=== PATIENT | male | born 1940 | race Caucasian/White ===

== ENCOUNTER 2017-03-03 14:29 | Inpatient (IN) | payer MEDICARE ==
[~2017-03-03] VITALS: Ht 177.8 cm; Wt 90.8 kg
[2017-03-03] VITALS (7 sets, daily range): BP systolic 11–116; BP diastolic 61–78; PULSE 47–100; RESP 16–18; TEMP 96.7–97.8; O2SAT 95–100
[~2017-03-03 14:29] MED LIST: AMIO200 PO; AMLO5TAB13 PO; BABY81CH PO; COQ1200C3 PO; DIOV320T PO; FENO1TAB76 PO; FURO20 PO; GLUC500C4 PO; ONDA1TAB16 PO; PREV30CA36 PO; SUPETAB30 PO; TOPR100T15 PO; XARE15TA PO
[2017-03-03] MEDS ORDERED: XARE20TA PO (14:49)
[2017-03-03] MEDS ORDERED: VITA100064 PO (14:57)
[2017-03-03] MEDS ORDERED: FURO1TAB62 PO (14:57)
[2017-03-03] MEDS ORDERED: LOSA25TA PO (14:57)
[2017-03-03] MEDS ORDERED: COEN400C PO (14:57)
[2017-03-03] MEDS ORDERED: METO100T PO (14:57)
[2017-03-03] MEDS ORDERED: ONDANSETRON HCL 4 MG/2 ML VIAL IV PUSH ONE ×2 (15:00→18:45)
[2017-03-03] MEDS ORDERED: SODIUM CHLORIDE 0.9% FLUSH 10 ML FLUSH IVF PRN (15:00)
[2017-03-03] MEDS ORDERED: diphenhydrAMINE HCL 50 MG/ML VIAL IV PUSH ONE (15:00)
[2017-03-03 15:27] LABS: AUTOMATED NEUTROPHIL # 12.8 TH/MM3 (1.8-7.7); BASOPHIL % 0.2 % (0.0-2.0); EOSINOPHIL % 0.2 % (0.0-4.0); HEMATOCRIT 41.2 % (39.0-51.0); HEMO FLAGS DIFF FINAL; LYMPH % 2.9 % (9.0-44.0); LYMPHOCYTE # 0.4 TH/MM3 (1.0-4.8); MEAN CELL VOLUME 96.3 FL (80.0-100.0); MEAN CORPUSCULAR HEMOGLOBIN 33.2 PG (27.0-34.0); MEAN CORPUSCULAR HGB CONC 34.4 % (32.0-36.0); MONO % 7.1 % (0.0-8.0); NEUT % 89.6 % (16.0-70.0); PLATELET COUNT 121 TH/MM3 (150-450); RED BLOOD COUNT 4.28 MIL/MM3 (4.50-5.90); RED CELL DISTRIBUTION WIDTH 13.4 % (11.6-17.2); WHITE BLOOD COUNT 14.2 TH/MM3 (4.0-11.0)
--- NOTE | 2017-03-03 15:30 | PD ---
HPI Chief Complaint: Complaint Time Seen by Provider: 14:44 Travel History International Travel<30 days: No Contact w/Intl Traveler<30days: No Traveled to known affect area: No History of Present Illness HPI Patient is a 76-year-old male presenting to emergency department evaluation of nausea and vomiting. Patient states he's had these symptoms since he had a urinary stent placed on Saturday with Dr. Lamb. Patient went to [facility] yesterday and was given IV fluids, labs were drawn and an EKG was performed per 's report. Patient was discharged home with a prescription for Zofran every 8 hours. Patient had been taking it but continued to feel nauseated. Additionally patient stopped Xarelto for the procedure, he resumed it on Saturday as advised and noticed an increase in hematuria. He did not take Saturday's dose or today's dose. He denies any other complaints at this time. No fever, no chills, no abdominal pain, no back pain, no chest pain. Patient's past medical history includes hypertension, hyperlipidemia, chronic kidney disease stage III, congestive heart failure. He has a pacemaker defibrillator. Dr. Shanks is his primary doctor. [facility] Past Medical History Hx Anticoagulant Therapy: Yes (xarelto) Arthritis: No Asthma: No Autoimmune Disease: No Blood Disorders: No Anxiety: No Depression: No Heart Rhythm Problems: Yes Cancer: No Cardiovascular Problems: Yes High Cholesterol: No Chemotherapy: No Chest Pain: No Congestive Heart Failure: No COPD: No Cerebrovascular Accident: Yes (TIA-2008) Diabetes: No Diminished Hearing: No Endocrine: No GERD: No Glaucoma: No Genitourinary: Yes Headaches: No Hepatitis: No Hiatal Hernia: No Hypertension: Yes Immune Disorder: No Kidney Stones: Yes Musculoskeletal: No Neurologic: No Psychiatric: No Reproductive: No Respiratory: No Myocardial Infarction: No Radiation Therapy: No Renal Failure: No Seizures: No Sickle Cell Disease: No Sleep Apnea: No Thyroid Disease: No Ulcer: No Tetanus Vaccination: > 5 Years Influenza Vaccination: Yes Past Surgical History Abdominal Surgery: No AICD: Yes Cardiac Surgery: Yes (LEFT CHEST PACEMAKER/DIFIB-2008) Ear Surgery: No Endocrine Surgery: No Eye Surgery: No Genitourinary Surgery: Yes (REMOVAL OF KIDNEY STONES) Gynecologic Surgery: No Joint Replacement: No Oral Surgery: No Pacemaker: No Thoracic Surgery: No Tonsillectomy: Yes Social History Alcohol Use: No Tobacco Use: No Substance Use: No Allergies-Medications (Allergen,Severity, Reaction): Coded Allergies: promethazine (Verified Allergy, Severe, Anaphylaxis, 03/03/17) Sulfa (Sulfonamide Antibiotics) (Unverified Allergy, Mild, Rash, 03/03/17) Reported Meds & Prescriptions Reported Meds & Active Scripts Active Reported Coq-10 (Coenzyme Q10 (Ubidecarenone)) 400 Mg Cap 200 Tab PO Vitamin D3 (Cholecalciferol) 1,000 Unit Tab 5,000 Units PO DAILY Losartan (Losartan Potassium) 25 Mg Tab 12.5 Mg PO DAILY Metoprolol Tartrate 100 Mg Tab 100 Mg PO DAILY Lasix (Furosemide) 20 Mg Tab 20 Mg PO DAILY Xarelto (Rivaroxaban) 20 Mg Tab 20 Mg PO DAILY Review of Systems Except as stated in HPI: all other systems reviewed are Neg General / Constitutional: No: Fever, Chills HENT: No: Headaches Cardiovascular: No: Chest Pain or Discomfort Respiratory: No: Shortness of Breath Gastrointestinal: Positive: Nausea, Vomiting, No: Abdominal Pain Genitourinary: Positive: Hematuria Neurologic: No: Weakness, Dizziness Physical Exam Narrative GENERAL: Well-developed, well-nourished, alert elderly gentleman. Resting comfortably in no acute distress. SKIN: Warm and dry. HEAD: Atraumatic. Normocephalic. EYES: Pupils equal and round. No scleral icterus. No injection or drainage. ENT: No nasal bleeding or discharge. Mucous membranes pink and moist. NECK: Trachea midline. No JVD. CARDIOVASCULAR: Regular rate and rhythm. 2/6 systolic murmur RESPIRATORY: No accessory muscle use. Clear to auscultation. Breath sounds equal bilaterally. GASTROINTESTINAL: Abdomen soft, non-tender, nondistended. Hepatic and splenic margins not palpable. MUSCULOSKELETAL: Extremities without clubbing, cyanosis, or edema. No obvious deformities. NEUROLOGICAL: Awake and alert. No obvious cranial nerve deficits. Motor grossly within normal limits. Five out of 5 muscle strength in the arms and legs. Normal speech. PSYCHIATRIC: Appropriate mood and affect; insight and judgment normal. Data Data Last Documented VS Vital Signs Date Time Temp Pulse Resp B/P (MAP) Pulse Ox O2 Delivery O2 Flow Rate FiO2 03/03/17 14:50 89 16 03/03/17 14:30 97.6 116/61 (79) 98 Orders Orders Complete Blood Count With Diff (03/03/17 14:57) Comprehensive Metabolic Panel (03/03/17 14:57) Urinalysis - C+S If Indicated (03/03/17 14:57) Ecg Monitoring (03/03/17 14:57) Iv Access Insert/Monitor (03/03/17 14:57) Ondansetron Inj (Zofran Inj) (03/03/17 15:00) Sodium Chloride 0.9% Flush (Ns Flush) (03/03/17 15:00) Diphenhydramine Inj (Benadryl Inj) (03/03/17 15:00) Sodium Chlorid 0.9% 500 Ml Inj (Ns 500 M (03/03/17 15:45) Abdomen, Kub Only (03/03/17 ) Labs Laboratory Tests Test 03/03/17 14:57 03/03/17 15:00 White Blood Count 14.2 TH/MM3 Red Blood Count 4.28 MIL/MM3 Hemoglobin 14.2 GM/DL Hematocrit 41.2 % Mean Corpuscular Volume 96.3 FL Mean Corpuscular Hemoglobin 33.2 PG Mean Corpuscular Hemoglobin Concent 34.4 % Red Cell Distribution Width 13.4 % Platelet Count 121 TH/MM3 Mean Platelet Volume 10.1 FL Neutrophils (%) (Auto) 89.6 % Lymphocytes (%) (Auto) 2.9 % Monocytes (%) (Auto) 7.1 % Eosinophils (%) (Auto) 0.2 % Basophils (%) (Auto) 0.2 % Neutrophils # (Auto) 12.8 TH/MM3 Lymphocytes # (Auto) 0.4 TH/MM3 Monocytes # (Auto) 1.0 TH/MM3 Eosinophils # (Auto) 0.0 TH/MM3 Basophils # (Auto) 0.0 TH/MM3 CBC Comment DIFF FINAL Differential Comment Blood Urea Nitrogen 30 MG/DL Creatinine 2.74 MG/DL Random Glucose 110 MG/DL Total Protein 6.5 GM/DL Albumin 2.7 GM/DL Calcium Level 7.7 MG/DL Alkaline Phosphatase 60 U/L Aspartate Amino Transf (AST/SGOT) 21 U/L Alanine Aminotransferase (ALT/SGPT) 16 U/L Total Bilirubin 1.2 MG/DL Sodium Level 122 MEQ/L Potassium Level 4.8 MEQ/L Chloride Level 91 MEQ/L Carbon Dioxide Level 23.7 MEQ/L Anion Gap 7 MEQ/L Estimat Glomerular Filtration Rate 23 ML/MIN MDM Medical Decision Making Medical Screen Exam Complete: Yes Emergency Medical Condition: Yes Interpretation(s) Vital Signs Date Time Temp Pulse Resp B/P (MAP) Pulse Ox O2 Delivery O2 Flow Rate FiO2 03/03/17 14:50 89 16 03/03/17 14:30 97.6 47 18 116/61 (79) 98 Differential Diagnosis UTI versus metabolic abnormality versus obstruction versus other Narrative Course Patient presented for evaluation of nausea vomiting that has been ongoing since a urinary stent was placed on Saturday. Patient appears well, his vital signs are stable. Labs ordered and pending. Patient to be given Zofran IV. Patient was given 500 mL of IV fluids. CBC with a white count of 10.2 with left shift Chemistry with a sodium of 122, BUN/creatinine 30/2.74, calcium 7.7, total bilirubin 1.2. Urinalysis with large occult blood, large leukocyte esterase, 64 white blood cells, few bacteria, few mucus. Patient was given ciprofloxacin IV 1 dose. Patient was reassessed, he continued to report nausea, additional dose of Zofran ordered. Abdominal x-ray which was read by the radiologist as double-J left ureteral stent in place. 14.8 mm calcified calculus in the mid left kidney. Multiple pelvic calcifications likely reflecting phleboliths a low bladder calculus cannot be excluded. A 9.6 mm pelvic calcification projects in the region of the left UVJ. patient was also seen and evaluated by my attending physician. Patient will be admitted with hyponatremia, intractable nausea or vomiting, urinary tract infection. Dr. Estrada discussed findings with Dr. Shanks, patient's primary doctor who accepted admission. Admit orders place. Diagnosis Primary Impression: Intractable nausea and vomiting Qualified Codes: R11.2 - Nausea with vomiting, unspecified Additional Impressions: UTI (urinary tract infection) Qualified Codes: N39.0 - Urinary tract infection, site not specified; R31.9 - Hematuria, unspecified Hyponatremia Admitting Information Admitting Physician Requests: Admit Condition: Stable Bharath,Lalaalvina ESPINAL Mar 03, 2017 15:30
[2017-03-03 15:45] LABS: ALKALINE PHOSPHATASE 60 U/L (45-117); ALT (GPT) 16 U/L (12-78); ANION GAP 7 MEQ/L (5-15); AST (GOT) 21 U/L (15-37); BICARBONATE 23.7 MEQ/L (21.0-32.0); BLOOD UREA NITROGEN 30 MG/DL (7-18); CHLORIDE 91 MEQ/L (98-107); GLOMERULAR FILTRATION RATE 23 ML/MIN (>89); TOTAL BILIRUBIN ADULT 1.2 MG/DL (0.2-1.0)
[2017-03-03] MEDS ORDERED: SODIUM CHLORID 0.9% 500 ML INJ 500 ML IV ONE (15:45)
[2017-03-03 15:55] LABS: POTASSIUM 4.8 MEQ/L (3.5-5.1)
[2017-03-03 15:57] LABS: SODIUM (NA) 122 MEQ/L (136-145)
--- NOTE | 2017-03-03 16:34 | RADRPT ---
EXAM DATE/TIME: 03/03/2017 15:58 [facility] COMPARISON: No previous studies available for comparison. INDICATIONS : Stent placement. DR kang. MEDICAL HISTORY : None. SURGICAL HISTORY : None. ENCOUNTER: Initial ACUITY: 1 day PAIN SCORE: 0/10 LOCATION: Bilateral abdomen FINDINGS: There is a left ureteral stent in place. There is a 14 x 8mm calcified density projecting in the ania on of the mid left kidney. There is a 9 x 6 mm calcified density projecting in the region of the left UVJ. Additional calcified densities in the pelvis likely reflect phleboliths although bladder calcul i cannot be excluded. No significant abnormal calcifications corresponding to the region of the right kidney and ureter. Nonobstructive bowel gas pattern. Osseous structures are intact. CONCLUSION: 1. Double-J left ureteral stent in place. 2. 14 x 8mm calcified calculus in the mid left kidney. 3. Multiple pelvic calcifications likely reflect phleboliths although bladder calculi cannot be exclu ded. A 9 x 6 mm pelvic calcification projects in the region of the left UVJ. Juan Ramon Cormier MD on March 03, 2017 at 16:29 Board Certified Radiologist. This report was verified electronically.
[2017-03-03 17:41] LABS: BACTERIA, URINE FEW /hpf; BLOOD, URINE LARGE (NEG); GLUCOSE,URINE NEG (NEG); KETONE, URINE NEG (NEG); MUCUS URINE FEW /lpf (OCC); NITRITE,URINE NEG (NEG); SQUAMOUS EPITHELIAL CELL URINE 1 /hpf (0-5); URINE COLOR YELLOW (YELLW/STRAW)
[2017-03-03 17:42] LABS: COMMENT (UR) CULTURE INDICATED; CULTURE IF INDICATED CULTURE INDICATED
[2017-03-03] MEDS ORDERED: CIPROFLOXACIN 400 MG PREMIX 200 ML IV ONE (18:00)
--- NOTE | 2017-03-03 19:34 | PD ---
Data Data Last Documented VS Vital Signs Date Time Temp Pulse Resp B/P (MAP) Pulse Ox O2 Delivery O2 Flow Rate FiO2 03/03/17 19:19 93 18 111/78 (89) 99 Room Air 03/03/17 17:21 97.8 Orders Orders Complete Blood Count With Diff (03/03/17 14:57) Comprehensive Metabolic Panel (03/03/17 14:57) Urinalysis - C+S If Indicated (03/03/17 14:57) Ecg Monitoring (03/03/17 14:57) Iv Access Insert/Monitor (03/03/17 14:57) Ondansetron Inj (Zofran Inj) (03/03/17 15:00) Sodium Chloride 0.9% Flush (Ns Flush) (03/03/17 15:00) Diphenhydramine Inj (Benadryl Inj) (03/03/17 15:00) Sodium Chlorid 0.9% 500 Ml Inj (Ns 500 M (03/03/17 15:45) Abdomen, Kub Only (03/03/17 ) Urine Culture (03/03/17 16:40) Ciprofloxacin 400 Mg Premix (Cipro 400 M (03/03/17 18:00) Ondansetron Inj (Zofran Inj) (03/03/17 18:45) Admit Order (Ed Use Only) (03/03/17 19:23) Labs Laboratory Tests Test 03/03/17 14:57 03/03/17 15:00 03/03/17 16:40 White Blood Count 14.2 TH/MM3 Red Blood Count 4.28 MIL/MM3 Hemoglobin 14.2 GM/DL Hematocrit 41.2 % Mean Corpuscular Volume 96.3 FL Mean Corpuscular Hemoglobin 33.2 PG Mean Corpuscular Hemoglobin Concent 34.4 % Red Cell Distribution Width 13.4 % Platelet Count 121 TH/MM3 Mean Platelet Volume 10.1 FL Neutrophils (%) (Auto) 89.6 % Lymphocytes (%) (Auto) 2.9 % Monocytes (%) (Auto) 7.1 % Eosinophils (%) (Auto) 0.2 % Basophils (%) (Auto) 0.2 % Neutrophils # (Auto) 12.8 TH/MM3 Lymphocytes # (Auto) 0.4 TH/MM3 Monocytes # (Auto) 1.0 TH/MM3 Eosinophils # (Auto) 0.0 TH/MM3 Basophils # (Auto) 0.0 TH/MM3 CBC Comment DIFF FINAL Differential Comment Blood Urea Nitrogen 30 MG/DL Creatinine 2.74 MG/DL Random Glucose 110 MG/DL Total Protein 6.5 GM/DL Albumin 2.7 GM/DL Calcium Level 7.7 MG/DL Alkaline Phosphatase 60 U/L Aspartate Amino Transf (AST/SGOT) 21 U/L Alanine Aminotransferase (ALT/SGPT) 16 U/L Total Bilirubin 1.2 MG/DL Sodium Level 122 MEQ/L Potassium Level 4.8 MEQ/L Chloride Level 91 MEQ/L Carbon Dioxide Level 23.7 MEQ/L Anion Gap 7 MEQ/L Estimat Glomerular Filtration Rate 23 ML/MIN Urine Color YELLOW Urine Turbidity HAZY Urine pH 5.0 Urine Specific [place] 1.015 Urine Protein 30 mg/dL Urine Glucose (UA) NEG mg/dL Urine Ketones NEG mg/dL Urine Occult Blood LARGE Urine Nitrite NEG Urine Bilirubin NEG Urine Urobilinogen 2.0 MG/DL Urine Leukocyte Esterase LARGE Urine RBC /hpf Urine WBC 64 /hpf Urine Squamous Epithelial Cells 1 /hpf Urine Bacteria FEW /hpf Urine Mucus FEW /lpf Microscopic Urinalysis Comment CULTURE INDICATED MDM Supervised Visit with MACIE: Yes Narrative Course The history, exam, and medical decision-making in the associated mid-level provider note were completed with my assistance. I reviewed and agree with the findings presented. I attest that I had a [id number] encounter with the patient on the same day, and personally performed and documented my assessment and findings in the medical record. *My assessment and Findings: 76-year-old man, recent stenting for 10 mm kidney stone, now with intractable vomiting, nausea, ongoing for several days. Seen in [facility] a couple days ago yesterday, diagnosed with UTI started on antibiotics. Continued vomiting today, retching, and decreased appetite. Patient appears dehydrated. Labs show sodium of 122. Patient of Dr. Shanks. Urologist is Dr. Powell. Micah Estrada MD Mar 03, 2017 19:34
[2017-03-03] MEDS ORDERED: SENNOSIDES 8.6 MG TAB PO PRN (19:45)
[2017-03-03] MEDS ORDERED: MAGNESIUM HYDROXIDE SUSP 30 ML CUP PO PRN (19:45)
[2017-03-03] MEDS ORDERED: LACTULOSE SYRUP 20 GM/30 ML CUP PO PRN (19:45)
[2017-03-03] MEDS ORDERED: ONDANSETRON HCL 4 MG/2 ML VIAL IVP PRN (19:45)
[2017-03-03] MEDS ORDERED: SODIUM CHLORIDE 0.9% FLUSH 10 ML FLUSH IV FLUSH PRN (19:45)
[2017-03-03] MEDS ORDERED: NALOXONE HCL 0.4 MG/ML AMP IV PUSH PRN (19:45)
[2017-03-03] MEDS ORDERED: BISACODYL 10 MG SUPP RECTAL PRN (19:45)
[2017-03-03] MEDS ORDERED: PILL SPLITTER OTHER PRN (20:00)
[2017-03-03] MEDS ORDERED: SODIUM CHLOR 0.9% 1000 ML INJ 1,000 ML IV SCH (20:00)
[2017-03-03] MEDS ORDERED: niCARdipine INJ 25 MG in SODIUM CHLOR 0.9% 250 ML INJ 240 ML IV ONE (20:00)
[2017-03-03] MEDS: DOCUSATE SODIUM 50 MG/SENNA 8.6 MG TAB PO SCH (20:52)
[2017-03-03] MEDS: SODIUM CHLORIDE 0.9% FLUSH 10 ML FLUSH IV FLUSH SCH (20:52)
[2017-03-03] MEDS: TEMAZEPAM 15 MG CAP PO PRN (21:56)
[2017-03-04] VITALS (18 sets, daily range): BP systolic 107–139; BP diastolic 69–97; PULSE 93–115; RESP 16–20; TEMP 97.4–98.9; O2SAT 93–98
[2017-03-04 05:56] LABS: AUTOMATED NEUTROPHIL # 9.6 TH/MM3 (1.8-7.7); BASOPHIL % 0.3 % (0.0-2.0); EOSINOPHIL # 0.1 TH/MM3 (0-0.4); EOSINOPHIL % 1.1 % (0.0-4.0); HEMATOCRIT 39.7 % (39.0-51.0); HEMO FLAGS DIFF FINAL; LYMPH % 4.7 % (9.0-44.0); LYMPHOCYTE # 0.5 TH/MM3 (1.0-4.8); MEAN CELL VOLUME 95.6 FL (80.0-100.0); MEAN CORPUSCULAR HEMOGLOBIN 33.3 PG (27.0-34.0); MEAN CORPUSCULAR HGB CONC 34.9 % (32.0-36.0); MONO % 8.6 % (0.0-8.0); NEUT % 85.3 % (16.0-70.0); PLATELET COUNT 119 TH/MM3 (150-450); RED BLOOD COUNT 4.15 MIL/MM3 (4.50-5.90); RED CELL DISTRIBUTION WIDTH 13.1 % (11.6-17.2); WHITE BLOOD COUNT 11.3 TH/MM3 (4.0-11.0)
[2017-03-04 07:08] LABS: ALKALINE PHOSPHATASE 59 U/L (45-117); ALT (GPT) 17 U/L (12-78); ANION GAP 8 MEQ/L (5-15); AST (GOT) 13 U/L (15-37); BICARBONATE 22.2 MEQ/L (21.0-32.0); BLOOD UREA NITROGEN 29 MG/DL (7-18); CHLORIDE 94 MEQ/L (98-107); GLOMERULAR FILTRATION RATE 26 ML/MIN (>89); POTASSIUM 4.3 MEQ/L (3.5-5.1)
[2017-03-04 07:10] LABS: SODIUM (NA) 124 MEQ/L (136-145)
--- NOTE | 2017-03-04 08:20 | HHI.HP ---
History of Present Illness Service INTERNAL MEDICINE Primary Care Physician GRABIEL SHANKS M.D. Admission Diagnosis URINARY TRACT INFECTION. HYPONATREMIA. Diagnoses: History of Present Illness This patient is a 76 year old male who has a history of having the development of recurrent episodes of nausea and vomiting. The onset had its start on 02/27/17. He had a ureteral stent placed due to the presence of a ureteral calculus. He had noticed the passage of a large amount of blood with urination. His Xarelto was held for two days on 02/28 and 03/01. It was resumed on 03/02 where by he noticed more blood and also became quite nauseous. He subsequently had episodes of vomiting also. He became quite weak and presented to the [facility] emergency room for evaluation. He is found with intractable nausea and vomiting, urinary tract infection and a very low sodium level. He is admitted to further assess and treat. Review of Systems Constitutional: COMPLAINS OF: Fatigue, Fever, Chills Endocrine: COMPLAINS OF: Heat/cold intolerance, Polyuria Gastrointestinal: COMPLAINS OF: Nausea, Vomiting Past Family Social History Allergies: Coded Allergies: promethazine (Verified Allergy, Severe, Anaphylaxis, 03/03/17) Sulfa (Sulfonamide Antibiotics) (Unverified Allergy, Mild, Rash, 03/03/17) Past Medical History 1. Chronic Diastolic Congestive Heart Failure. 2. Multifocal Premature Ventricular Contractions. 3. Ischemic Cardiomyopathy. 4. Hypertension. 5. Hyperlipidemia. 6. Transient Ischemic Attack. 7. Chronic Kidney Disease, Stage 3. 8. Left Bundle Branch Block. 9. Chronic Atrial Fibrillation. Past Surgical History Retrieval of Kidney Stone. Pacemaker/AICD Placement. Family History Significant for Cardiac Disease and Hyperlipidemia as well as Hypertension. Social History He is and lives at home with his . He is nonsmoking and alcohol intake is exceptionally rare and minimal. There is no use of recreational drugs. Physical Exam Vital Signs Vital Signs Date Time Temp Pulse Resp B/P (MAP) Pulse Ox O2 Delivery O2 Flow Rate FiO2 03/04/17 04:00 98.9 114 18 107/72 (84) 94 03/03/17 23:06 96.7 100 18 109/64 (79) 95 03/03/17 23:03 96 03/03/17 19:52 97.4 100 18 112/70 (84) 100 03/03/17 19:42 03/03/17 19:19 93 18 111/78 (89) 99 Room Air 03/03/17 17:21 97.8 89 16 112/68 (83) 98 Room Air 03/03/17 14:50 89 16 03/03/17 14:30 97.6 47 18 116/61 (79) 98 Physical Exam GENERAL: This is a well-nourished and well-developed patient who is in no apparent distress. SKIN: No rashes, ecchymoses or lesions. Cool and dry. HEAD: Atraumatic. Normocephalic. No temporal or scalp tenderness. EYES: Pupils equal round and reactive. Extraocular motions intact. No scleral icterus. No injection or drainage. ENT: Nose without bleeding, purulent drainage or septal hematoma. Throat without erythema, tonsillar hypertrophy or exudate. Uvula midline. Airway patent. NECK: Trachea midline. No JVD or lymphadenopathy. Supple, nontender, no meningeal signs. CARDIOVASCULAR: Irregular rhythm with the rate somewhat erratic at this time. RESPIRATORY: Clear to auscultation. Breath sounds equal bilaterally. No wheezes , rales, or rhonchi. GASTROINTESTINAL: Abdomen soft, non-tender, nondistended. No hepato-splenomegaly , or palpable masses. No guarding. MUSCULOSKELETAL: Extremities without clubbing, cyanosis, or edema. No joint tenderness, effusion, or edema noted. No calf tenderness. Negative Homans sign bilaterally. NEUROLOGICAL: Awake and alert. Cranial nerves II through XII intact. Motor and sensory grossly within normal limits. Five out of 5 muscle strength in all muscle groups. Normal speech. Laboratory Laboratory Tests Test 03/03/17 14:57 03/03/17 15:00 03/03/17 16:40 03/04/17 05:41 White Blood Count 14.2 11.3 Red Blood Count 4.28 4.15 Hemoglobin 14.2 13.8 Hematocrit 41.2 39.7 Mean Corpuscular Volume 96.3 95.6 Mean Corpuscular Hemoglobin 33.2 33.3 Mean Corpuscular Hemoglobin Concent 34.4 34.9 Red Cell Distribution Width 13.4 13.1 Platelet Count 121 119 Mean Platelet Volume 10.1 9.1 Neutrophils (%) (Auto) 89.6 85.3 Lymphocytes (%) (Auto) 2.9 4.7 Monocytes (%) (Auto) 7.1 8.6 Eosinophils (%) (Auto) 0.2 1.1 Basophils (%) (Auto) 0.2 0.3 Neutrophils # (Auto) 12.8 9.6 Lymphocytes # (Auto) 0.4 0.5 Monocytes # (Auto) 1.0 1.0 Eosinophils # (Auto) 0.0 0.1 Basophils # (Auto) 0.0 0.0 CBC Comment DIFF FINAL DIFF FINAL Differential Comment Blood Urea Nitrogen 30 29 Creatinine 2.74 2.45 Random Glucose 110 105 Total Protein 6.5 6.2 Albumin 2.7 2.6 Calcium Level 7.7 7.6 Alkaline Phosphatase 60 59 Aspartate Amino Transf (AST/SGOT) 21 13 Alanine Aminotransferase (ALT/SGPT) 16 17 Total Bilirubin 1.2 1.0 Sodium Level 122 124 Potassium Level 4.8 4.3 Chloride Level 91 94 Carbon Dioxide Level 23.7 22.2 Anion Gap 7 8 Estimat Glomerular Filtration Rate 23 26 Urine Color YELLOW Urine Turbidity HAZY Urine pH 5.0 Urine Specific [place] 1.015 Urine Protein 30 Urine Glucose (UA) NEG Urine Ketones NEG Urine Occult Blood LARGE Urine Nitrite NEG Urine Bilirubin NEG Urine Urobilinogen 2.0 Urine Leukocyte Esterase LARGE Urine RBC Urine WBC 64 Urine Squamous Epithelial Cells 1 Urine Bacteria FEW Urine Mucus FEW Microscopic Urinalysis Comment CULTURE INDICATED Magnesium Level 1.8 Date/Time Source Procedure Growth Status 03/03/17 16:40 Urine Clean Catch Urine Culture Pending Received Result Diagram: 03/04/17 0541 03/04/17 0541 Caprini VTE Risk Assessment Caprini VTE Risk Assessment: Mod/High Risk (score >= 2) Caprini Risk Assessment Model Point Value = 1 Point Value = 2 Point Value = 3 Point Value = 5 Age 41-60 Minor surgery BMI > 25 kg/m2 Swollen legs Varicose veins or History of unexplained or recurrent spontaneous Oral contraceptives or hormone replacement Sepsis (< 1 month) Serious lung disease, including pneumonia (< 1 month) Abnormal pulmonary function Acute myocardial infarction Congestive heart failure (< 1 month) History of inflammatory bowel disease Medical patient at bed rest Age 61-74 Arthroscopic surgery Major open surgery (> 45 min) Laparoscopic surgery (> 45 min) Malignancy Confined to bed (> 72 hours) Immobilizing plaster cast Central venous access Age >= 75 History of VTE Family history of VTE Factor V Leiden Prothrombin [id number] Lupus anticoagulant Anticardiolipin antibodies Elevated serum homocysteine Heparin-induced thrombocytopenia Other congenital or acquired thrombophilia Stroke (< 1 month) Elective arthroplasty Hip, pelvis, or leg fracture Acute spinal cord injury (< 1 month) Prophylaxis Regimen Total Risk Factor Score Risk Level Prophylaxis Regimen 0-1 Low Early ambulation 2 Moderate Order ONE of the following: *Sequential Compression Device (SCD) *Heparin 5000 units SQ BID 3-4 Higher Order ONE of the following medications: *Heparin 5000 units SQ TID *Enoxaparin/Lovenox 40 mg SQ daily (WT < 150 kg, CrCl > 30 mL/min) *Enoxaparin/Lovenox 30 mg SQ daily (WT < 150 kg, CrCl > 10-29 mL/min) *Enoxaparin/Lovenox 30 mg SQ BID (WT < 150 kg, CrCl > 30 mL/min) AND/OR *Sequential Compression Device (SCD) 5 or more Highest Order ONE of the following medications: *Heparin 5000 units SQ TID (Preferred with Epidurals) *Enoxaparin/Lovenox 40 mg SQ daily (WT < 150 kg, CrCl > 30 mL/min) *Enoxaparin/Lovenox 30 mg SQ daily (WT < 150 kg, CrCl > 10-29 mL/min) *Enoxaparin/Lovenox 30 mg SQ BID (WT < 150 kg, CrCl > 30 mL/min) AND *Sequential Compression Device (SCD) Assessment and Plan Assessment and Plan ASSESSMENT 1. Urinary Tract Infection. 2. Left Ureteral Stent. 3. Severe Hyponatremia. 4. Intractable Nausea and Vomiting. 4. Paroxysmal Ventricular Tachycardia. 5. Multifocal Premature Ventricular Contractions. 6. Chronic Atrial Fibrillation. 7. Ischemic Cardiomyopathy. PLAN 1. Admit to the hospital as an Inpatient. 2. Fluid Restriction. 3. Urine Culture. 4. Consultation to Urology. 5. Consultation to Cardiology. 6. Follow up laboratory assessment. 7. DVT and PE prophylaxis. Grabiel Shanks MD Mar 04, 2017 08:20
[2017-03-04] MEDS: DOCUSATE SODIUM 50 MG/SENNA 8.6 MG TAB PO SCH ×2 (09:40→21:00)
[2017-03-04] MEDS: LOSARTAN 25 MG TAB PO SCH (09:40)
[2017-03-04] MEDS: FUROSEMIDE 20 MG TAB PO SCH (09:41)
[2017-03-04] MEDS: METOPROLOL TARTRATE 100 MG TAB PO SCH (09:41)
[2017-03-04] MEDS: SODIUM CHLORIDE 0.9% FLUSH 10 ML FLUSH IV FLUSH SCH ×2 (09:42→21:00)
[2017-03-04] MEDS: RIVAROXABAN 20 MG TAB PO SCH (10:47)
[2017-03-04] MEDS: CIPROFLOXACIN 400 MG PREMIX 200 ML IV SCH (14:19)
--- NOTE | 2017-03-04 19:56 | PD.CONS ---
HPI Service Urology Consult Requested By Reason for Consult Nephrolithiasis, stent Primary Care Physician Grabiel Shanks MD Diagnosis: History of Present Illness 76yo male with history of Afib on Xarelto and nephrolithiasis followed by Dr. Lamb who recently underwent left ureteral stent placement last week now admitted with significant UTI. Patient reports that shortly after the stent was placed he began to develop symptoms of infection. This has progressively worsened. He reports intermittent hematuria with lower abdominal pain and dysuria.He also has significant nausea and vomiting which has not results. KUB in the ER identifies the left ureteral stent in place. No fevers upon arrival.His white count has progressively improved since arrival and overall the patient is feeling better. Review of Systems ROS Limitations: Clinical Condition Constitutional: DENIES: Fever Eyes: DENIES: Blurred vision Ears, nose, mouth, throat: DENIES: Hearing loss Respiratory: DENIES: Cough Cardiovascular: DENIES: Chest pain Gastrointestinal: COMPLAINS OF: Abdominal pain, Nausea, Vomiting Genitourinary: COMPLAINS OF: Urinary frequency, Urgency, Hematuria, Dysuria Musculoskeletal: COMPLAINS OF: Back pain Integumentary: DENIES: Rash Neurologic: DENIES: Headache Psychiatric: DENIES: Anxiety Except as stated in HPI: all other systems reviewed are Neg Past Family Social History Past Medical History Nephrolithiasis HTN Hyperlipidemia Afib Past Surgical History cysto, stent, lithotripsy Reported Medications Reported Meds & Active Scripts Active Reported Coq-10 (Coenzyme Q10 (Ubidecarenone)) 400 Mg Cap 200 Tab PO Vitamin D3 (Cholecalciferol) 1,000 Unit Tab 5,000 Units PO DAILY Losartan (Losartan Potassium) 25 Mg Tab 12.5 Mg PO DAILY Metoprolol Tartrate 100 Mg Tab 100 Mg PO DAILY Lasix (Furosemide) 20 Mg Tab 20 Mg PO DAILY Xarelto (Rivaroxaban) 20 Mg Tab 20 Mg PO DAILY Allergies: Coded Allergies: promethazine (Verified Allergy, Severe, Anaphylaxis, 03/03/17) Sulfa (Sulfonamide Antibiotics) (Unverified Allergy, Mild, Rash, 03/03/17) Active Ordered Medications Current Medications Medications (Trade) Dose Ordered Sig/Mirian Route Start Time Stop Time Status Last Admin (NS Flush) 2 ml UNSCH PRN IV FLUSH 03/03/17 19:45 (NS Flush) 2 ml BID IV FLUSH 03/03/17 21:00 03/05/17 08:20 (Zofran Inj) 4 mg Q6H PRN IVP 03/03/17 19:45 03/03/17 21:56 (Restoril) 15 mg HS PRN PO 03/03/17 19:45 03/04/17 21:45 (Narcan Inj) 0.4 mg UNSCH PRN IV PUSH 03/03/17 19:45 (Sanjuanita-Colace) 1 tab BID PO 03/03/17 21:00 03/04/17 09:40 (Milk Of Magnesia Liq) 30 ml Q12H PRN PO 03/03/17 19:45 (Senokot) 17.2 mg Q12H PRN PO 03/03/17 19:45 (Dulcolax Supp) 10 mg DAILY PRN RECTAL 03/03/17 19:45 (Lactulose Liq) 30 ml DAILY PRN PO 03/03/17 19:45 Ciprofloxacin/ Dextrose 200 ml @ 200 mls/hr Q18H IV 03/04/17 12:00 03/05/17 06:16 (Lasix) 20 mg DAILY PO 03/04/17 09:00 03/05/17 08:20 (Cozaar) 12.5 mg DAILY PO 03/04/17 09:00 03/05/17 08:18 (Lopressor) 100 mg DAILY PO 03/04/17 09:00 03/05/17 08:18 (Xarelto) 20 mg DAILY PO 03/04/17 09:00 03/05/17 08:20 (Pill Splitter) 1 ea UNSCH PRN OTHER 03/03/17 20:00 Family History Family history reviewed and noncontributory to present illness Social History No smoking Physical Exam Vital Signs Date Time Temp Pulse Resp B/P (MAP) Pulse Ox O2 Delivery O2 Flow Rate FiO2 03/04/17 18:15 101 03/04/17 17:35 96 03/04/17 16:31 98 03/04/17 15:22 98.7 103 18 107/72 (84) 95 03/04/17 15:00 93 03/04/17 14:00 100 03/04/17 13:00 100 03/04/17 12:58 98.1 101 18 119/69 (86) 97 03/04/17 12:00 97.4 98 20 118/97 (104) 98 03/04/17 08:00 98.2 115 20 125/91 (102) 97 03/04/17 07:00 108 03/04/17 04:00 98.9 114 18 107/72 (84) 94 03/03/17 23:06 96.7 100 18 109/64 (79) 95 03/03/17 23:03 96 Physical Exam GENERAL: This is a well-nourished, well-developed patient, in no apparent distress. SKIN: No rashes, ecchymoses or lesions. Cool and dry. HEAD: Atraumatic. Normocephalic. EYES: Extraocular motions intact. No scleral icterus. No injection or drainage. ENT: Nose without bleeding, purulent drainage. Airway patent. NECK: Trachea midline. No JVD or lymphadenopathy. CARDIOVASCULAR: normal pulses RESPIRATORY: Nonlabored, equal chest rise GASTROINTESTINAL: Abdomen soft, non-tender, nondistended. MUSCULOSKELETAL: Extremities without clubbing, cyanosis, or edema. NEUROLOGICAL: Awake and alert. Motor and sensory grossly within normal limits. Normal speech. Lab results reviewed: Yes Laboratory Tests Test 03/04/17 05:41 White Blood Count 11.3 Red Blood Count 4.15 Hemoglobin 13.8 Hematocrit 39.7 Mean Corpuscular Volume 95.6 Mean Corpuscular Hemoglobin 33.3 Mean Corpuscular Hemoglobin Concent 34.9 Red Cell Distribution Width 13.1 Platelet Count 119 Mean Platelet Volume 9.1 Neutrophils (%) (Auto) 85.3 Lymphocytes (%) (Auto) 4.7 Monocytes (%) (Auto) 8.6 Eosinophils (%) (Auto) 1.1 Basophils (%) (Auto) 0.3 Neutrophils # (Auto) 9.6 Lymphocytes # (Auto) 0.5 Monocytes # (Auto) 1.0 Eosinophils # (Auto) 0.1 Basophils # (Auto) 0.0 CBC Comment DIFF FINAL Differential Comment Blood Urea Nitrogen 29 Creatinine 2.45 Random Glucose 105 Total Protein 6.2 Albumin 2.6 Calcium Level 7.6 Alkaline Phosphatase 59 Aspartate Amino Transf (AST/SGOT) 13 Alanine Aminotransferase (ALT/SGPT) 17 Total Bilirubin 1.0 Sodium Level 124 Potassium Level 4.3 Chloride Level 94 Carbon Dioxide Level 22.2 Anion Gap 8 Estimat Glomerular Filtration Rate 26 Magnesium Level 1.8 Date/Time Source Procedure Growth Status 03/03/17 16:40 Urine Clean Catch Urine Culture - Preliminary Group D Enterococcus Resulted Result Diagram: 03/04/17 0541 03/04/17 0541 Personally reviewed images: Yes Imaging Last Impressions Abdomen X-Ray 03/03/17 0000 Signed Impressions: Service Date/Time: Friday, March 03, 2017 15:58 - CONCLUSION: 1. Double-J left ureteral stent in place. 2. 14 x 8mm calcified calculus in the mid left kidney. 3. Multiple pelvic calcifications likely reflect phleboliths although bladder calculi cannot be excluded. A 9 x 6 mm pelvic calcification projects in the region of the left UVJ. Juan Ramon Cormier MD Assessment and Plan Problem List: (1) UTI (urinary tract infection) ICD Code: N39.0 - Urinary tract infection, site not specified Status: Acute (2) Intractable nausea and vomiting ICD Code: R11.2 - Nausea with vomiting, unspecified Status: Acute (3) Hyponatremia ICD Code: E87.1 - Hypo-osmolality and hyponatremia Status: Acute Assessment and Plan -Obtain CT scan to identify any evidence of hydronephrosis or other stone burden. -Urine culture and blood cultures -Continue antibiotics. Expect patient to improve with IV antibiotics -Patient will eventually need treatment for his stone burden with stent removal and any lithotripsy procedure after resolution of current infection. Patient may followup with Dr. Lamb for definitive treatment. -CT scan without evidence of any obstructing stones, with the stent in good position on the left with stones noted there. No evidence of hydronephrosis bilaterally. -Patient is clear for discharge from a urology standpoint with antibiotics and followup with urology as an outpatient for definitive management of his stone burden and stent. Problem Qualifiers (1) UTI (urinary tract infection): Qualified Codes: N39.0 - Urinary tract infection, site not specified; R31.9 - Hematuria, unspecified (2) Intractable nausea and vomiting: Qualified Codes: R11.2 - Nausea with vomiting, unspecified Alexis Lomas MD Mar 04, 2017 19:56
[2017-03-04] MEDS: TEMAZEPAM 15 MG CAP PO PRN (21:45)
[2017-03-05] VITALS (27 sets, daily range): BP systolic 105–174; BP diastolic 67–89; PULSE 55–120; RESP 16–18; TEMP 98.6–99.4; O2SAT 95–99
[2017-03-05] MEDS: CIPROFLOXACIN 400 MG PREMIX 200 ML IV SCH (06:16)
[2017-03-05] MEDS: LOSARTAN 25 MG TAB PO SCH (08:18)
[2017-03-05] MEDS: METOPROLOL TARTRATE 100 MG TAB PO SCH (08:18)
[2017-03-05] MEDS: DOCUSATE SODIUM 50 MG/SENNA 8.6 MG TAB PO SCH ×3 (08:20→21:00)
[2017-03-05] MEDS: SODIUM CHLORIDE 0.9% FLUSH 10 ML FLUSH IV FLUSH SCH ×2 (08:20→21:05)
[2017-03-05] MEDS: FUROSEMIDE 20 MG TAB PO SCH (08:20)
[2017-03-05] MEDS: RIVAROXABAN 20 MG TAB PO SCH (08:20)
[2017-03-05 08:42] LABS: AUTOMATED NEUTROPHIL # 6.7 TH/MM3 (1.8-7.7); BASOPHIL % 0.4 % (0.0-2.0); EOSINOPHIL # 0.1 TH/MM3 (0-0.4); EOSINOPHIL % 1.6 % (0.0-4.0); HEMATOCRIT 39.8 % (39.0-51.0); HEMO FLAGS DIFF FINAL; LYMPH % 5.7 % (9.0-44.0); LYMPHOCYTE # 0.5 TH/MM3 (1.0-4.8); MEAN CELL VOLUME 96.2 FL (80.0-100.0); MEAN CORPUSCULAR HEMOGLOBIN 33.7 PG (27.0-34.0); MEAN CORPUSCULAR HGB CONC 35.1 % (32.0-36.0); MONO % 11.8 % (0.0-8.0); NEUT % 80.5 % (16.0-70.0); PLATELET COUNT 143 TH/MM3 (150-450); RED BLOOD COUNT 4.13 MIL/MM3 (4.50-5.90); RED CELL DISTRIBUTION WIDTH 12.9 % (11.6-17.2); WHITE BLOOD COUNT 8.4 TH/MM3 (4.0-11.0)
[2017-03-05 09:10] LABS: ANION GAP 9 MEQ/L (5-15); AST (GOT) 11 U/L (15-37); BICARBONATE 23.6 MEQ/L (21.0-32.0); BLOOD UREA NITROGEN 35 MG/DL (7-18); CHLORIDE 94 MEQ/L (98-107); GLOMERULAR FILTRATION RATE 25 ML/MIN (>89); POTASSIUM 4.3 MEQ/L (3.5-5.1); SODIUM (NA) 127 MEQ/L (136-145)
[2017-03-05 09:27] LABS: ALKALINE PHOSPHATASE 69 U/L (45-117); ALT (GPT) 11 U/L (12-78)
--- NOTE | 2017-03-05 12:03 | RADRPT ---
EXAM DATE/TIME: 03/05/2017 10:25 [facility] COMPARISON: No previous studies available for comparison. INDICATIONS : Urinary tract infection status post left ureteral stent placement. ORAL CONTRAST: No oral contrast ingested. RADIATION DOSE: 14.88 CTDIvol (mGy) MEDICAL HISTORY : Hypertension. Cardiovascular disease Renal calculi. SURGICAL HISTORY : Left ureteral stent ENCOUNTER: Initial ACUITY: 1 week PAIN SCALE: 0/10 LOCATION: anterior TECHNIQUE: Volumetric scanning of the abdomen and pelvis was performed. Using automated exposure control and ad justment of the mA and/or kV according to patient size, radiation dose was kept as low as reasonably achievable to obtain optimal diagnostic quality images. DICOM format image data is available electro nically for review and comparison. FINDINGS: LOWER LUNGS: Small bilateral effusions are noted. The heart is moderately enlarged. LIVER: Homogeneous density without lesion. There is no dilation of the biliary tree. No calcified gallston es. SPLEEN: Normal size without lesion. PANCREAS: Within normal limits. KIDNEYS: Multiple calculi are identified in the kidneys. There 2 calculi in the right kidney. A 6 cm stone is noted in the upper pole and a 3 mm stone in the lower pole. For calculi identified in the left kidney. The largest is identified in the lower pole measures 7.4 mm. Additional 2-3 mm calculi are seen in the midpole. A left internal ureteral stent is identified. The stent extends from the left renal pelvis into the bladder. There is no evidence of hydronephrosis. ADRENAL GLANDS: Within normal limits. VASCULAR: There is no aortic aneurysm. BOWEL/MESENTERY: Numerous diverticula present throughout the colon. There are no active inflammatory changes. There ar e no abnormal fluid collections or evidence of free air. ABDOMINAL WALL: Within normal limits. RETROPERITONEUM: There is no lymphadenopathy. BLADDER: No wall thickening or mass. REPRODUCTIVE: Prostate is enlarged. Calcific deposits are identified in the transition zone. INGUINAL: Large fat containing left-sided inguinal hernia is noted. MUSCULOSKELETAL: Within normal limits for patient age. CONCLUSION: 1. Bilateral nephrolithiasis. 2. Left internal ureteral stent. 3. No evidence of hydronephrosis or obstructive uropathy. 4. Colonic diverticulosis without evidence of active inflammation. 5. Prostatomegaly 6. Large fat containing left inguinal hernia. Wayne Arnold MD on March 05, 2017 at 11:52 Board Certified Radiologist. This report was verified electronically.
--- NOTE | 2017-03-05 18:19 | HHI.PR ---
Subjective Patient symptoms today Doing well, WBC improved. No fevers, no pain Objective Vital Signs Vital Signs Date Time Temp Pulse Resp B/P (MAP) Pulse Ox O2 Delivery O2 Flow Rate FiO2 03/05/17 18:01 120 03/05/17 17:00 108 03/05/17 16:01 94 03/05/17 15:30 98.6 99 18 109/83 (92) 96 03/05/17 15:00 93 03/05/17 14:00 94 03/05/17 13:01 100 03/05/17 12:00 94 03/05/17 11:30 98.6 97 18 106/73 (84) 95 03/05/17 11:00 93 03/05/17 10:00 92 03/05/17 09:00 92 03/05/17 08:01 98.8 55 18 127/74 (91) 99 03/05/17 08:00 100 03/05/17 07:01 105 03/05/17 06:00 109 03/05/17 05:00 96 03/05/17 04:00 99.4 97 16 121/67 (85) 95 03/05/17 04:00 103 03/05/17 03:00 108 03/05/17 02:00 93 03/05/17 01:00 98 03/05/17 00:00 104 03/04/17 23:30 98.5 104 16 112/71 (85) 93 03/04/17 23:00 94 03/04/17 22:00 94 03/04/17 21:00 96 03/04/17 20:00 98.6 99 16 139/77 (97) 97 03/04/17 20:00 96 03/04/17 19:00 94 Intake & Output 03/05/17 03/05/17 07:00 19:00 Intake Total 480 ml 240 ml Balance 480 ml 240 ml Intake Oral 480 ml 240 ml # Voids 4 # Bowel Movements 0 Result Diagram: 03/05/17 0830 03/05/17 0830 Imaging Last 24 hours Impressions Abdomen/Pelvis CT 03/05/17 0000 Signed Impressions: Service Date/Time: Sunday, March 05, 2017 10:25 - CONCLUSION: 1. Bilateral nephrolithiasis. 2. Left internal ureteral stent. 3. No evidence of hydronephrosis or obstructive uropathy. 4. Colonic diverticulosis without evidence of active inflammation. 5. Prostatomegaly 6. Large fat containing left inguinal hernia. Wayne Arnold MD Objective Remarks NAD, AAOx3 Resp NL Ab S/NT/ND Medications and IVs Current Medications Medications (Trade) Dose Ordered Sig/Mirian Route Start Time Stop Time Status Last Admin (NS Flush) 2 ml UNSCH PRN IV FLUSH 03/03/17 19:45 (NS Flush) 2 ml BID IV FLUSH 03/03/17 21:00 03/05/17 08:20 (Zofran Inj) 4 mg Q6H PRN IVP 03/03/17 19:45 03/03/17 21:56 (Restoril) 15 mg HS PRN PO 03/03/17 19:45 03/04/17 21:45 (Narcan Inj) 0.4 mg UNSCH PRN IV PUSH 03/03/17 19:45 (Sanjuanita-Colace) 1 tab BID PO 03/03/17 21:00 03/04/17 09:40 (Milk Of Magnesia Liq) 30 ml Q12H PRN PO 03/03/17 19:45 (Senokot) 17.2 mg Q12H PRN PO 03/03/17 19:45 (Dulcolax Supp) 10 mg DAILY PRN RECTAL 03/03/17 19:45 (Lactulose Liq) 30 ml DAILY PRN PO 03/03/17 19:45 Ciprofloxacin/ Dextrose 200 ml @ 200 mls/hr Q18H IV 03/04/17 12:00 03/05/17 06:16 (Lasix) 20 mg DAILY PO 03/04/17 09:00 03/05/17 08:20 (Cozaar) 12.5 mg DAILY PO 03/04/17 09:00 03/05/17 08:18 (Lopressor) 100 mg DAILY PO 03/04/17 09:00 03/05/17 08:18 (Xarelto) 20 mg DAILY PO 03/04/17 09:00 03/05/17 08:20 (Pill Splitter) 1 ea UNSCH PRN OTHER 03/03/17 20:00 Assessment and Plan Problem List: (1) UTI (urinary tract infection) ICD Code: N39.0 - Urinary tract infection, site not specified Status: Acute (2) Intractable nausea and vomiting ICD Code: R11.2 - Nausea with vomiting, unspecified Status: Acute (3) Hyponatremia ICD Code: E87.1 - Hypo-osmolality and hyponatremia Status: Acute Assessment and Plan -Ct scan with no evidence of obstructing stone or hydronephrosis. Left stent in good position -Patient is to continue antibiotics -No urological intervention indicated during this hospitalization. Clear for discharge from Urology standpoint once medically stable -Patient to follow-up with Urology in clinic after discharge for definitive treatment of his stone burden -Please call with questions Problem Qualifiers (1) UTI (urinary tract infection): Qualified Codes: N39.0 - Urinary tract infection, site not specified; R31.9 - Hematuria, unspecified (2) Intractable nausea and vomiting: Qualified Codes: R11.2 - Nausea with vomiting, unspecified Alexis Lomas MD Mar 05, 2017 18:19
[2017-03-05] MEDS: TEMAZEPAM 15 MG CAP PO PRN (21:03)
--- NOTE | 2017-03-05 21:22 | HHI.PR ---
Subjective Remarks He was seen by Urology with plans made for intervention versus medical treatment to stabilize. He denies any new adverse symptoms. Objective - Vital Signs Date Time Temp Pulse Resp B/P (MAP) Pulse Ox O2 Delivery O2 Flow Rate FiO2 03/05/17 18:01 120 03/05/17 17:00 108 03/05/17 16:01 94 03/05/17 15:30 98.6 99 18 109/83 (92) 96 03/05/17 15:00 93 03/05/17 14:00 94 03/05/17 13:01 100 03/05/17 12:00 94 03/05/17 11:30 98.6 97 18 106/73 (84) 95 03/05/17 11:00 93 03/05/17 10:00 92 03/05/17 09:00 92 03/05/17 08:01 98.8 55 18 127/74 (91) 99 03/05/17 08:00 100 03/05/17 07:01 105 03/05/17 06:00 109 03/05/17 05:00 96 03/05/17 04:00 99.4 97 16 121/67 (85) 95 03/05/17 04:00 103 03/05/17 03:00 108 03/05/17 02:00 93 03/05/17 01:00 98 03/05/17 00:00 104 03/04/17 23:30 98.5 104 16 112/71 (85) 93 03/04/17 23:00 94 03/04/17 22:00 94 I/O 03/04/17 03/04/17 03/04/17 03/05/17 03/05/17 03/05/17 07:00 15:00 23:00 07:00 15:00 23:00 Intake Total 840 ml 480 ml 240 ml Output Total 350 ml Balance 490 ml 480 ml 240 ml Intake Oral 840 ml 480 ml 240 ml Output Urine Total 350 ml # Voids 1 4 3 # Bowel Movements 1 0 1 Result Diagram: 03/05/1782903/05/17829 Objective Remarks GENERAL: Alert and in much less distress than on the day prior. SKIN: Warm and dry. HEAD: Normocephalic. Atraumatic. EYES: No scleral icterus. No injection or drainage. NECK: Supple, trachea midline. No JVD or lymphadenopathy. CARDIOVASCULAR: Regular rate and rhythm without murmurs, gallops, or rubs. RESPIRATORY: Breath sounds equal bilaterally. No accessory muscle use. GASTROINTESTINAL: Abdomen soft, non-tender, nondistended. MUSCULOSKELETAL: No cyanosis, or edema. BACK: Nontender without obvious deformity. No CVA tenderness. A/P Assessment and Plan ASSESSMENT 1. Urinary Tract Infection. 2. Left Ureteral Stent. 3. Severe Hyponatremia. 4. Intractable Nausea and Vomiting. 4. Paroxysmal Ventricular Tachycardia. 5. Multifocal Premature Ventricular Contractions. 6. Chronic Atrial Fibrillation. 7. Ischemic Cardiomyopathy. PLAN 1. Intravenous antibiotics and fluid Restriction. 2. Urine Culture pending. 3. Urology and Cardiology follow. 4. Follow up laboratory assessment. 5. DVT and PE prophylaxis. Grabiel Shanks MD Mar 05, 2017 21:22
[2017-03-06] VITALS (10 sets, daily range): BP systolic 98–128; BP diastolic 54–86; PULSE 85–130; RESP 16–18; TEMP 98.4–98.8; O2SAT 94–97
[2017-03-06] MEDS: CIPROFLOXACIN 400 MG PREMIX 200 ML IV SCH (00:03)
[2017-03-06 02:32] LABS: BACTERIA, URINE OCC /hpf; BLOOD, URINE MOD (NEG); COMMENT (UR) CULTURE INDICATED; CULTURE IF INDICATED CULTURE INDICATED; GLUCOSE,URINE NEG (NEG); KETONE, URINE NEG (NEG); MUCUS URINE FEW /lpf (OCC); NITRITE,URINE NEG (NEG); SQUAMOUS EPITHELIAL CELL URINE <1 /hpf (0-5); URINE COLOR LIGHT-YELLOW (YELLW/STRAW)
[2017-03-06 05:13] LABS: HEMATOCRIT 38.9 % (39.0-51.0); MEAN CELL VOLUME 95.5 FL (80.0-100.0); MEAN CORPUSCULAR HEMOGLOBIN 32.9 PG (27.0-34.0); MEAN CORPUSCULAR HGB CONC 34.5 % (32.0-36.0); PLATELET COUNT 146 TH/MM3 (150-450); RED BLOOD COUNT 4.07 MIL/MM3 (4.50-5.90); RED CELL DISTRIBUTION WIDTH 12.9 % (11.6-17.2); REVIEW FLAG FINAL; WHITE BLOOD COUNT 10.8 TH/MM3 (4.0-11.0)
[2017-03-06 05:43] LABS: BICARBONATE 23.8 MEQ/L (21.0-32.0); POTASSIUM 4.3 MEQ/L (3.5-5.1)
[2017-03-06] MEDS: FUROSEMIDE 20 MG TAB PO SCH (08:20)
[2017-03-06] MEDS: RIVAROXABAN 20 MG TAB PO SCH (08:20)
[2017-03-06] MEDS: LOSARTAN 25 MG TAB PO SCH (08:20)
[2017-03-06] MEDS: SODIUM CHLORIDE 0.9% FLUSH 10 ML FLUSH IV FLUSH SCH (08:20)
[2017-03-06] MEDS: METOPROLOL TARTRATE 100 MG TAB PO SCH (08:20)
[2017-03-06] MEDS: DOCUSATE SODIUM 50 MG/SENNA 8.6 MG TAB PO SCH (08:21)
--- NOTE | 2017-03-06 09:04 | HHI.PR ---
Subjective Remarks I spoke to the patient and the this morning for the fact that he as well as his laboratory assessments are improved and he is stable for discharge today Objective - Vital Signs Date Time Temp Pulse Resp B/P (MAP) Pulse Ox O2 Delivery O2 Flow Rate FiO2 03/06/17 07:01 112 03/06/17 06:00 114 03/06/17 05:00 113 03/06/17 04:00 107 03/06/17 03:00 98.4 124 16 127/86 (100) 96 03/06/17 03:00 124 03/06/17 02:00 119 03/06/17 01:00 130 03/06/17 00:00 98.5 104 16 116/82 (93) 96 03/06/17 00:00 96 03/05/17 23:00 104 03/05/17 22:00 102 03/05/17 21:00 110 03/05/17 20:00 99.4 112 16 105/71 (82) 95 03/05/17 20:00 106 03/05/17 19:00 120 03/05/17 18:01 120 03/05/17 17:00 108 03/05/17 16:01 94 03/05/17 15:30 98.6 99 18 109/83 (92) 96 03/05/17 15:00 93 03/05/17 14:00 94 03/05/17 13:01 100 03/05/17 12:00 94 03/05/17 11:30 98.6 97 18 106/73 (84) 95 03/05/17 11:00 93 03/05/17 10:00 92 I/O 03/05/17 03/05/17 03/05/17 03/06/17 03/06/17 03/06/17 07:00 15:00 23:00 07:00 15:00 23:00 Intake Total 480 ml 240 ml 440 ml Output Total 350 ml Balance 480 ml 240 ml 90 ml Intake Oral 480 ml 240 ml 240 ml IV Total 200 ml Output Urine Total 350 ml # Voids 4 3 2 # Bowel Movements 0 1 0 Result Diagram: 03/06/17 0445 03/06/17 0445 Objective Remarks GENERAL: Alert and in distress. SKIN: Warm and dry. HEAD: Normocephalic. EYES: No scleral icterus. No injection or drainage. NECK: Supple, trachea midline. No JVD or lymphadenopathy. CARDIOVASCULAR: Irregular rhythm to examination today. RESPIRATORY: Breath sounds equal bilaterally. No accessory muscle use. GASTROINTESTINAL: Abdomen soft, non-tender, nondistended. MUSCULOSKELETAL: No cyanosis, or edema. BACK: Nontender without obvious deformity. No CVA tenderness. A/P Assessment and Plan ASSESSMENT 1. Urinary Tract Infection. 2. Left Ureteral Stent. 3. Severe Hyponatremia. 4. Intractable Nausea and Vomiting. 4. Paroxysmal Ventricular Tachycardia. 5. Multifocal Premature Ventricular Contractions. 6. Chronic Atrial Fibrillation. 7. Ischemic Cardiomyopathy. MEDICALLY IMPROVED STATUS PLAN 1. Fluid Restriction to continue. 2. To treat as per the urine culture. 3. Urology and Cardiology dispositions. 4. Discharge Planning. 5. DVT and PE prophylaxis. OKAY TO GO HOME TODAY Grabiel Shanks MD Mar 06, 2017 09:04
[2017-03-06] MEDS ORDERED: CIPR-9 PO (09:13)
[2017-03-06] MEDS ORDERED: CIPROFLOXACIN 500 MG TAB PO SCH (21:00)
== END 2017-03-06 11:31 | disposition home or self-care (01) | DRG 690 ==
LOC: NEPE 14:29 → NEDA 16:34 → N06B 20:00 → HCVI 03-04 05:55 → HCIS 03-04 12:33
PROVIDERS: ADMIT Internal Medicine; ATTEND Internal Medicine
DX: N39.0 Urinary tract infection, site not specified (principal); I47.2 Ventricular tachycardia; I50.9 Heart failure, unspecified; E87.1 Hypo-osmolality and hyponatremia; I48.2 Chronic atrial fibrillation; I13.0 Hypertensive heart and chronic kidney disease with heart failure and stage 1 through stage 4 chronic kidney disease, or unspecified chronic kidney disease; N18.3 Chronic kidney disease, stage 3 (moderate); E78.5 Hyperlipidemia, unspecified; I49.3 Ventricular premature depolarization; I25.5 Ischemic cardiomyopathy; N20.0 Calculus of kidney; B95.2 Enterococcus as the cause of diseases classified elsewhere; Z79.01 Long term (current) use of anticoagulants; Z86.73 Personal history of transient ischemic attack (TIA), and cerebral infarction without residual deficits; Z88.2 Allergy status to sulfonamides; Z95.810 Presence of automatic (implantable) cardiac defibrillator
CPT/HCPCS: 74000; 74176; 80048; 80053; 81001; 83735; 85025; 85027; 87077; 87086; 87186; 96361; 96365; 96375; J0744; J1200; J2405; J7030; J7040